=== PATIENT | female | born 2005 | race Caucasian/White ===

== ENCOUNTER 2023-07-08 12:25 | Emergency (ER) | payer SELFPAY ==
[~2023-07-08] VITALS: Ht 177.8 cm; Wt 127.8 kg
[2023-07-08] MEDS ORDERED: PROVENTIL HFA6.7 GM INH (13:56)
[2023-07-08] MEDS ORDERED: PAXLOVID 300-11 EAC1 PO (13:56)
[2023-07-08] MEDS ORDERED: PREDNISONE20 MG PO (13:56)
[2023-07-08 14:03] VITALS: BP 110/68
== END 2023-07-08 14:07 | disposition home or self-care (01) ==
LOC: ED 12:25
DX: U07.1 COVID-19 (principal)
CPT/HCPCS: 99284